=== PATIENT | male | born 1990 | race African-American/Black ===

== ENCOUNTER 2016-08-26 02:13 | Emergency (ER) | payer SELFPAY ==
[~2016-08-26] VITALS: Ht 177.8 cm; Wt 108.9 kg
[~2016-08-26 02:13] MED LIST: HYDR115S2 PO; PRED50TA PO; PROAIR HFA8.5 GM INH
[2016-08-26 02:29] VITALS: BP 153/70
[2016-08-26] MEDS ORDERED: predniSONE 10 MG TABLET PO ONE (03:15)
[2016-08-26] MEDS ORDERED: BENZONATATE 100 MG CAPSULE. PO ONE (03:15)
[2016-08-26] MEDS ORDERED: IPRATRPIUM/ALBUTEROL 0.5/2.5MG 3 ML NEBU. NEB ONE (03:15)
[2016-08-26] MEDS ORDERED: PRED50TA PO (03:53)
[2016-08-26] MEDS ORDERED: BENZ100C PO (03:53)
[2016-08-26] MEDS ORDERED: PROAIR HFA8.5 GM INH (03:53)
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
--- NOTE | 2016-08-26 07:27 | RAD ---
Indication cough. PA and lateral views of the chest were obtained. Comparison is made to a prior examination 10/11/2015. The heart, pulmonary vessels and mediastinum appear normal. The lungs are clear. There has not been a significant change in the appearance of the chest compared to the previous exam. IMPRESSION: No acute or focal process. No significant change
== END 2016-08-26 03:58 | disposition home or self-care (01) ==
LOC: ER 02:13
DX: J06.9 Acute upper respiratory infection, unspecified (principal); J45.909 Unspecified asthma, uncomplicated; F17.200 Nicotine dependence, unspecified, uncomplicated; F12.10 Cannabis abuse, uncomplicated
CPT/HCPCS: 71020; 94640; 99284; J7512; J7620